=== PATIENT | female | born 1975 | race Two or more races ===

== ENCOUNTER 2022-04-23 09:08 | Emergency (ER) | payer MEDICAID, OTHER ==
[~2022-04-23] VITALS: Ht 170.2 cm; Wt 100.0 kg
[2022-04-23 09:35] VITALS: BP 121/76
[2022-04-23] MEDS ORDERED: HYDROcodone-ACET 10/325MG TAB PO ONE (10:00)
[2022-04-23] MEDS ORDERED: IBUP800T26 PO (10:32)
== END 2022-04-23 10:48 | disposition home or self-care (01) ==
LOC: ER 09:08 → EDBD 09:08 → ER 10:48
DX: S63.502A Unspecified sprain of left wrist, initial encounter (principal); V49.9XXA Car occupant (driver) (passenger) injured in unspecified traffic accident, initial encounter; Y93.89 Activity, other specified; Y92.410 Unspecified street and highway as the place of occurrence of the external cause; Y99.8 Other external cause status
CPT/HCPCS: 73110